=== PATIENT | female | born 1955 | race Caucasian/White ===

== ENCOUNTER 2022-01-25 04:49 | Day surgery (SDC) | payer OTHER ==
[2022-01-24 09:19] VITALS: BMI 30.9
[2022-01-25] MEDS ORDERED: BUPIVACAINE HCL/PF 0.5% (5MG/ML) 10 ML VIAL ONE ×2 (12:42→14:39)
[2022-01-25] MEDS ORDERED: PROPOFOL 20 ML ONE ×4 (12:48→15:18)
[2022-01-25] MEDS ORDERED: DEXMEDETOMIDINE HCL 200 MCG/2 ML IVPB ONE (13:18)
[2022-01-25] MEDS ORDERED: MIDAZOLAM HCL 2 MG/2 ML SINGLE DOSE VIAL ONE ×2 (13:19)
[2022-01-25] MEDS ORDERED: ceFAZolin SODIUM 1 GM VIAL IVPB ONE (14:05)
[2022-01-25] MEDS ORDERED: BUPIVACAINE HCL/PF 0.5% (5MG/ML) 10 ML VIAL IJ ONE (16:40)
[2022-01-25] MEDS ORDERED: ONDANSETRON 4 MG/2 ML VIAL IVPUSH PRN (17:13)
[2022-01-25] MEDS ORDERED: oxyCODONE HCL 5 MG TABLET PO PRN ×2 (17:13→17:21)
[2022-01-25] MEDS ORDERED: PROMETHAZINE HCL 25 MG/1 ML VIAL IVPUSH PRN (17:13)
[2022-01-25] MEDS ORDERED: LACTATED RINGERS SOLUTION 1,000 ML IV SCH (17:15)
[2022-01-25] MEDS ORDERED: DOCUSATE SODIUM 100 MG CAPSULE (FP) PO PRN (17:21)
[2022-01-26 09:00] VITALS: BP 110/59; PULSE 82; TEMP 98.5
== END 2022-01-26 13:31 | disposition home or self-care (01) ==
LOC: JASUSAT 04:49 → JASU-SURG 04:49 → J8W 18:49 → JASUSAT 01-26 13:31
PROVIDERS: ATTEND Podiatrist Foot Surgery
PROC: 0SGJ04Z Fusion of Left Tarsal Joint with Internal Fixation Device, Open Approach (ICD-10-PCS; 2022-01-25)
PROC: 0SGJ04Z Fusion of Left Tarsal Joint with Internal Fixation Device, Open Approach (ICD-10-PCS; 2022-01-25)
PROC: 0SGJ07Z Fusion of Left Tarsal Joint with Autologous Tissue Substitute, Open Approach (ICD-10-PCS; 2022-01-25)
PROC: 0SGJ07Z Fusion of Left Tarsal Joint with Autologous Tissue Substitute, Open Approach (ICD-10-PCS; 2022-01-25)
PROC: 0SGJ07Z Fusion of Left Tarsal Joint with Autologous Tissue Substitute, Open Approach (ICD-10-PCS; 2022-01-25)
PROC: 0SGJ04Z Fusion of Left Tarsal Joint with Internal Fixation Device, Open Approach (ICD-10-PCS; principal; 2022-01-25 13:00)
DX: M19.072 Primary osteoarthritis, left ankle and foot (principal)
CPT/HCPCS: 28715; C1713; 76000-TC-FY; 88304-TC; 88311-TC; 94760; 97116-GP; 97161-GP